=== PATIENT | female | born 1955 | race Caucasian/White ===

== ENCOUNTER 2021-10-31 22:53 | Emergency (ER) | payer BC ==
[~2021-10-31] VITALS: Ht 167.6 cm; Wt 53.5 kg
--- NOTE | 2021-10-31 23:00 | NUR ---
pt a/o x3 amb to [facility] bed 2a without assist denies dizziness or sob. able to speak in complete sentences. pt with laceration above left eye.
--- NOTE | 2021-10-31 23:05 | NUR ---
Dr. Poon at bedside for MSE.
[2021-10-31] MEDS ORDERED: LIDOCAINE HCL 1% 20 ML VIAL TP ONE (23:15)
--- NOTE | 2021-10-31 23:18 | NUR ---
pt was taken to CT scan.
[2021-10-31] MEDS ORDERED: ACET-2154 PO (23:20)
--- NOTE | 2021-10-31 23:25 | NUR ---
pt returned from CT scan.
--- NOTE | 2021-10-31 23:50 | NUR ---
Dr. Poon at bedside for suture.
[2021-10-31] MEDS ORDERED: ONDANSETRON ODT 4 MG TAB.RAPDIS ONE (23:59)
[2021-11-01] MEDS ORDERED: BACITRACIN ZINC OINT 15 GM TUBE TOP ONE (00:15)
[2021-11-01] MEDS ORDERED: ACETAMINOPHEN/CODEINE 300-30 MG TABLET PO ONE (00:15)
[2021-11-01] MEDS ORDERED: ONDANSETRON ODT 4 MG TAB.RAPDIS SL ONE (00:15)
[2021-11-01] MEDS ORDERED: BACITRACIN OPHT OINT 3.5 GM TUBE ONE (00:24)
[2021-11-01] MEDS ORDERED: ACET1TAB23 PO (00:25)
[2021-11-01] MEDS ORDERED: BACITRACIN ZINC OINT 15 GM TUBE ONE (00:26)
--- NOTE | 2021-11-01 00:35 | NUR ---
Patient discharged to home in stable condition. Written and verbal after care instructions given. Patient verbalizes understanding of instructions. Stressed follow up or return to ER for worsening s/s. pt ambulate without assist, steady gait, denies pain.
[2021-11-01 00:36] VITALS: BP 105/70
== END 2021-11-01 00:36 | disposition home or self-care (01) ==
LOC: ER 23:01
DX: S01.112A Laceration without foreign body of left eyelid and periocular area, initial encounter (principal); W01.0XXA Fall on same level from slipping, tripping and stumbling without subsequent striking against object, initial encounter; Y92.89 Other specified places as the place of occurrence of the external cause
CPT/HCPCS: 12011; 70450; 99284; J3490; A4217; A4663; J3590; Q0162